=== PATIENT | male | born 1945 | race Caucasian/White ===

== ENCOUNTER → 2017-10-09 | Outpatient (CLI) | payer MEDICARE ==
[~2017-10-09] MED LIST: AMIT10TA6 PO; ATOR10TA69 PO; CEPH-578 PO; LISI-613 PO; PRIM50TA29 PO; TAMS0.4C32 PO; [UNRECOGNIZED DRUG - OTHER] PO
== END | disposition home or self-care (01) ==
LOC: RAH 13:47
PROVIDERS: ATTEND Internal Medicine
DX: E04.2 Nontoxic multinodular goiter (principal); D69.6 Thrombocytopenia, unspecified
CPT/HCPCS: 76536

== ENCOUNTER → 2018-03-01 | Outpatient (CLI) | payer MEDICARE | END | disposition home or self-care (01) | LOC: SHCH 07:50 | PROVIDERS: ATTEND Internal Medicine Cardiovascular Disease | DX: I10 Essential (primary) hypertension (principal); Z72.89 Other problems related to lifestyle | CPT/HCPCS: 93306 ==

== ENCOUNTER → 2018-03-05 | Outpatient (CLI) | payer MEDICARE ==
[~2018-03-05] VITALS: Ht 172.7 cm; Wt 81.6 kg
[~2018-03-05] MED LIST changes: +REGADENOSON 0.4 MG/5 ML PF SYG IVP SCH
== END | disposition home or self-care (01) ==
LOC: SHCH 09:20
PROVIDERS: ATTEND Internal Medicine Cardiovascular Disease
DX: I20.9 Angina pectoris, unspecified (principal)
CPT/HCPCS: 78452; 93017; 96374; A9500 ×2; J2785

== ENCOUNTER → 2018-06-13 | Outpatient (CLI) | payer MEDICARE ==
[~2018-06-13] MED LIST changes: +IOHEXOL-350 50ML VIAL IV ONE; -REGADENOSON 0.4 MG/5 ML PF SYG IVP SCH
== END | disposition home or self-care (01) ==
LOC: RAH 09:28
PROVIDERS: ATTEND Internal Medicine
DX: R07.9 Chest pain, unspecified (principal)
CPT/HCPCS: 71260; Q9967

== ENCOUNTER 2019-03-05 07:44 | Day surgery (SDC) | payer MEDICARE ==
[~2019-03-05] VITALS: Ht 177.8 cm; Wt 97.1 kg
[~2019-03-05 07:44] MED LIST changes: -IOHEXOL-350 50ML VIAL IV ONE; +SODIUM CHLORIDE 0.9% 1000ML 1,000 ML IV ONE
[2019-03-05 08:31] VITALS: BP 132/75
[2019-03-05 08:48] LABS: BASOPHILS % (AUTO) 0.6 % (0.0-5.0); EOSINOPHILS % (AUTO) 3.7 % (0.0-8.0); LYMPHOCYTES % (AUTO) 21.4 % (21.0-51.0); MEAN CORPUSCULAR HEMOGLOBIN 32.4 pg (27.0-33.0); MEAN CORPUSCULAR HGB CONC 35.1 g/dL (32.0-36.0); MEAN CORPUSCULAR VOLUME 92.1 fL (79-99); MONOCYTES % (AUTO) 9.4 % (3.0-13.0); NEUTROPHILS % (AUTO) 64.9 % (40.0-77.0); NUCLEATED RED BLOOD CELLS 0.2 % (0.0-0.19); PLATELET COUNT (AUTO) 131 K/uL (130-400); RED CELL DISTRIBUTION WIDTH 12.7 % (11.0-15.5); WHITE BLOOD COUNT (AUTO) 5.2 K/uL (4.8-10.8)
[2019-03-05] MEDS ORDERED: SACU1TAB7 PO (08:56)
[2019-03-05] MEDS ORDERED: NITR0.4T50 SL (08:56)
[2019-03-05] MEDS ORDERED: RANO10003 PO (08:56)
[2019-03-05] MEDS ORDERED: ATOR20TA65 PO (08:56)
[2019-03-05] MEDS ORDERED: TUMERIC PO (08:56)
[2019-03-05] MEDS ORDERED: ASPI-555 PO (08:56)
[2019-03-05 08:57] LABS: INR 1.08 (0.85-1.15); PROTHROMBIN TIME 11.3 SEC (9.6-11.6)
[2019-03-05] MEDS ORDERED: PROPOFOL 10 MG/ML 20ML VIAL IV ONE (09:08)
[2019-03-05 09:29] VITALS: BP 107/64
[2019-03-05 09:34] VITALS: BP 111/65
[2019-03-05 09:39] VITALS: BP 109/68
[2019-03-05 09:44] VITALS: BP 119/69
== END 2019-03-05 09:49 | disposition home or self-care (01) ==
LOC: ENDO 07:44 → DAH 07:44 → ENDO 09:49
PROVIDERS: ATTEND Internal Medicine
DX: D3A.092 Benign carcinoid tumor of the stomach (principal); K29.50 Unspecified chronic gastritis without bleeding; K21.0 Gastro-esophageal reflux disease with esophagitis; I10 Essential (primary) hypertension; G47.30 Sleep apnea, unspecified; Z79.82 Long term (current) use of aspirin; Z98.890 Other specified postprocedural states; Z79.899 Other long term (current) drug therapy; Z72.89 Other problems related to lifestyle; Z82.3 Family history of stroke
CPT/HCPCS: 36415; 43237; 43239; 85025; 85610; 88305; A4215; A4221; A4222; A4223; A4606; A4615; A4663; J2704; J7030

== ENCOUNTER → 2021-06-21 | Outpatient (CLI) | payer MEDICARE ==
[~2021-06-21] MED LIST changes: -AMIT10TA6 PO; +ASPI-556 PO; -ATOR10TA69 PO; +ATOR20TA65 PO; -CEPH-578 PO; -LISI-613 PO; +NITR0.4T50 SL; -PRIM50TA29 PO; +RANO10003 PO; +SACU1TAB7 PO; -SODIUM CHLORIDE 0.9% 1000ML 1,000 ML IV ONE; +TUMERIC PO; -[UNRECOGNIZED DRUG - OTHER] PO
== END | disposition home or self-care (01) ==
LOC: SHCH 12:53
PROVIDERS: ATTEND Internal Medicine Cardiovascular Disease
DX: I87.2 Venous insufficiency (chronic) (peripheral) (principal)
CPT/HCPCS: 93970

== ENCOUNTER → 2021-06-27 | Outpatient (CLI) | payer MEDICARE ==
[~2021-06-27] MED LIST changes: +REGADENOSON 0.4 MG/5 ML PF SYG IVP SCH
== END | disposition home or self-care (01) ==
LOC: SHCH 08:11
PROVIDERS: ATTEND Internal Medicine Cardiovascular Disease
DX: I20.9 Angina pectoris, unspecified (principal); R06.09 Other forms of dyspnea; R07.9 Chest pain, unspecified
CPT/HCPCS: 78452; 93017; 96374; A9500 ×2; J2785

== ENCOUNTER 2021-10-04 18:56 | Observation (INO) | payer MEDICARE ==
[~2021-10-04] VITALS: Ht 177.8 cm; Wt 91.4 kg
[~2021-10-04 18:56] MED LIST changes: +AMLO-258 PO; -ASPI-556 PO; +LOSA100T58 PO; -NITR0.4T50 SL; +OXYB5TAB15 PO; -RANO10003 PO; -REGADENOSON 0.4 MG/5 ML PF SYG IVP SCH; -SACU1TAB7 PO; -TUMERIC PO
[2021-10-04 19:20] LABS: APPEARANCE,URINE CLEAR (CLEAR); BILIRUBIN,URINE NEGATIVE (NEGATIVE); COLOR,URINE YELLOW (YELLOW); GLUCOSE, URINE (UA) NEGATIVE (NEGATIVE); KETONES,URINE NEGATIVE (NEGATIVE); LEUKOCYTE ESTERASE ,URINE NEGATIVE (NEGATIVE); NITRATE,URINE NEGATIVE (NEGATIVE); OCCULT BLOOD,URINE NEGATIVE (NEGATIVE); PROTEIN,URINE NEGATIVE (NEGATIVE); UROBILINOGEN,URINE 0.2 mg/dL (0.2-1.0)
[2021-10-04] MEDS ORDERED: METOPROLOL TARTRATE 1 MG/ML 5ML VIAL IV ONE (19:30)
[2021-10-04 19:48] LABS: BASOPHILS % (AUTO) 0.4 % (0.0-5.0); EOSINOPHILS % (AUTO) 2.9 % (0.0-8.0); HEMATOCRIT 34.9 % (42-54); LYMPHOCYTES % (AUTO) 13.6 % (21.0-51.0); MEAN CORPUSCULAR HEMOGLOBIN 31.2 pg (27.0-33.0); MEAN CORPUSCULAR HGB CONC 33.8 g/dL (32.0-36.0); MEAN CORPUSCULAR VOLUME 92.3 fL (79-99); MONOCYTES % (AUTO) 7.2 % (3.0-13.0); NEUTROPHILS % (AUTO) 74.7 % (40.0-77.0); PLATELET COUNT (AUTO) 235 K/uL (130-400); RED BLOOD CELL COUNT(AUTO) 3.78 MIL/uL (4.50-6.20); RED CELL DISTRIBUTION WIDTH 11.7 % (11.0-15.5); WHITE BLOOD COUNT (AUTO) 10.8 K/uL (4.8-10.8)
[2021-10-04 20:01] LABS: POTASSIUM 3.9 mmol/L (3.5-5.1)
[2021-10-04 20:03] LABS: INR 1.12 (0.85-1.15); PROTHROMBIN TIME 12.1 SEC (9.6-11.6)
[2021-10-04 20:05] LABS: PARTIAL THROMBOPLASTIN TIME 29.7 SEC (26.3-35.5)
[2021-10-04 20:06] LABS: ALBUMIN 3.2 g/dL (3.5-5.0); TOTAL PROTEIN, SERUM 6.7 g/dL (6.0-8.3)
[2021-10-04 20:08] LABS: B-TYPE NATRIURETIC PEPTIDE 176 pg/mL (0-100)
[2021-10-04] MEDS ORDERED: ACETAMINOPHEN 325 MG TAB PO PRN (20:30)
[2021-10-04] MEDS ORDERED: ONDANSETRON 4MG INJ IV PRN (20:30)
[2021-10-04] MEDS ORDERED: ASPIRIN 81MG CHEW TAB PO ONE (20:30)
[2021-10-04] MEDS ORDERED: MORPHINE 4 MG SYG IV PRN (20:30)
[2021-10-04] MEDS ORDERED: MORPHINE 2 MG SYG IV PRN (20:30)
[2021-10-04] MEDS ORDERED: 0.9% NACL 500ML IV.SOLN 500 ML IV ONE (20:30)
[2021-10-04] MEDS ORDERED: DILTIAZEM 25MG INJ IVP ONE (20:30)
[2021-10-04] MEDS ORDERED: METO25TA6 PO (20:40)
[2021-10-04] MEDS ORDERED: CLOP75TA14 PO (20:40)
[2021-10-04] MEDS ORDERED: AMLO-258 PO (20:40)
[2021-10-04] MEDS ORDERED: DOCU100C33 PO (20:40)
[2021-10-04] MEDS ORDERED: ATOR40TA71 PO (20:40)
[2021-10-04] MEDS ORDERED: FURO20TA4 PO (20:40)
[2021-10-04] MEDS ORDERED: OXYB5TAB15 PO (20:40)
[2021-10-04] MEDS ORDERED: LOSA100T58 PO (20:40)
[2021-10-04] MEDS ORDERED: ASPI-1197 PO (20:40)
[2021-10-04] MEDS ORDERED: BENZ-70 PO (20:40)
[2021-10-04] MEDS ORDERED: TAMS-1 PO (20:40)
[2021-10-04] MEDS ORDERED: NITR0.4T50 SL (20:40)
[2021-10-04] MEDS ORDERED: FENTANYL CITRATE PF 50 MCG/1 ML 2ML VIAL IVP ONE (21:00)
[2021-10-04] MEDS ORDERED: MIDAZOLAM HCL 1 MG/ML 2ML VIAL IVP ONE (21:00)
[2021-10-04 21:02] VITALS: BP_DIAS 66
[2021-10-04 21:02] LABS: PHOSPHORUS 3.9 mg/dL (2.5-4.9); THYROID STIMULATING HORMONE 0.55 uIU/mL (0.36-3.74)
[2021-10-04] MEDS ORDERED: ASPIRIN 81MG CHEW TAB ONE (21:41)
[2021-10-04] MEDS: HEPARIN 5,000 UNIT VIAL SQ SCH (21:48)
[2021-10-05 03:30] VITALS: BP 117/67
[2021-10-05 04:10] LABS: BASOPHILS % (AUTO) 0.3 % (0.0-5.0); EOSINOPHILS % (AUTO) 3.4 % (0.0-8.0); HEMATOCRIT 31.1 % (42-54); LYMPHOCYTES % (AUTO) 15.4 % (21.0-51.0); MEAN CORPUSCULAR HEMOGLOBIN 31.7 pg (27.0-33.0); MEAN CORPUSCULAR HGB CONC 34.4 g/dL (32.0-36.0); MONOCYTES % (AUTO) 8.3 % (3.0-13.0); NEUTROPHILS % (AUTO) 70.9 % (40.0-77.0); PLATELET COUNT (AUTO) 229 K/uL (130-400); RED BLOOD CELL COUNT(AUTO) 3.38 MIL/uL (4.50-6.20); RED CELL DISTRIBUTION WIDTH 11.7 % (11.0-15.5); WHITE BLOOD COUNT (AUTO) 8.8 K/uL (4.8-10.8)
[2021-10-05 04:40] LABS: POTASSIUM 3.9 mmol/L (3.5-5.1)
[2021-10-05] MEDS: HEPARIN 5,000 UNIT VIAL SQ SCH (06:05)
[2021-10-05 08:00] VITALS: BP 116/64
[2021-10-05] MEDS ORDERED: ASPIRIN 81MG CHEW TAB PO SCH (09:00)
[2021-10-05] MEDS ORDERED: FAMOTIDINE 20MG TAB PO SCH (09:00)
[2021-10-05] MEDS ORDERED: AMLO-258 PO (09:53)
[2021-10-05] MEDS ORDERED: KCL 20 MEQ ERTAB PO SCH (10:30)
== END 2021-10-05 11:14 | disposition home or self-care (01) ==
LOC: EDH 18:56 → INTOOBSV 20:18 → EDHIP 20:18 → 2DH 10-05 02:23
PROVIDERS: ADMIT Hospitalist; ATTEND Hospitalist
DX: I48.92 Unspecified atrial flutter (principal); Z20.822 Contact with and (suspected) exposure to COVID-19; I10 Essential (primary) hypertension; I25.10 Atherosclerotic heart disease of native coronary artery without angina pectoris; I48.91 Unspecified atrial fibrillation; N40.0 Benign prostatic hyperplasia without lower urinary tract symptoms; R42 Dizziness and giddiness; E78.5 Hyperlipidemia, unspecified; Z95.1 Presence of aortocoronary bypass graft; Z96.651 Presence of right artificial knee joint; Z79.899 Other long term (current) drug therapy; Z98.890 Other specified postprocedural states; Z79.82 Long term (current) use of aspirin
CPT/HCPCS: 92960; 96374; 96372 ×2; 96361; 84443; 83735; 84100; 84484; 80053; 83880; 85025 ×2; 85610; 85730; 81003; 36415 ×2; 87635; 71045; 99291; 93005 ×3; 80048; J7040; J3010; J3490; J2250; J1644 ×2; G0378; 96375

== ENCOUNTER → 2021-11-24 | Outpatient (CLI) | payer MEDICARE ==
[~2021-11-24] MED LIST changes: +ASPI-1197 PO; -ATOR20TA65 PO; +ATOR40TA71 PO; +BENZ-70 PO; +CLOP75TA14 PO; +DOCU100C33 PO; +FURO20TA4 PO; +METO25TA6 PO; +NITR0.4T50 SL; +TAMS-1 PO; -TAMS0.4C32 PO
== END | disposition home or self-care (01) ==
LOC: RAH 09:21
PROVIDERS: ATTEND Internal Medicine
DX: M71.22 Synovial cyst of popliteal space [Baker], left knee (principal); D69.9 Hemorrhagic condition, unspecified; F17.201 Nicotine dependence, unspecified, in remission; D69.6 Thrombocytopenia, unspecified
CPT/HCPCS: 76775; 93971

== ENCOUNTER 2022-04-11 13:54 | Emergency (ER) | payer MEDICARE ==
[~2022-04-11] VITALS: Ht 177.8 cm; Wt 97.5 kg
[~2022-04-11 13:54] MED LIST changes: +CLOP-31 PO; -CLOP75TA14 PO
[2022-04-11 14:12] VITALS: BP 145/71
[2022-04-11 14:40] LABS: BASOPHILS % (AUTO) 0.3 % (0.0-5.0); EOSINOPHILS % (AUTO) 1.1 % (0.0-8.0); HEMATOCRIT 42.4 % (42-54); LYMPHOCYTES % (AUTO) 12.2 % (21.0-51.0); MEAN CORPUSCULAR HEMOGLOBIN 31.6 pg (27.0-33.0); MEAN CORPUSCULAR HGB CONC 35.6 g/dL (32.0-36.0); MEAN CORPUSCULAR VOLUME 88.7 fL (79-99); NEUTROPHILS % (AUTO) 79.9 % (40.0-77.0); PLATELET COUNT (AUTO) 137 K/uL (130-400); RED BLOOD CELL COUNT(AUTO) 4.78 MIL/uL (4.50-6.20); RED CELL DISTRIBUTION WIDTH 12.3 % (11.0-15.5); WHITE BLOOD COUNT (AUTO) 8.8 K/uL (4.8-10.8)
[2022-04-11 14:52] LABS: POTASSIUM 3.6 mmol/L (3.5-5.1)
[2022-04-11 14:57] LABS: ALBUMIN 3.8 g/dL (3.5-5.0)
[2022-04-11] MEDS ORDERED: BACI30OI6 TP (15:20)
[2022-04-11] MEDS ORDERED: AMOX1TAB16 PO (15:20)
[2022-04-11] MEDS ORDERED: ACETAMINOPHEN 500 MG TABLET PO ONE (15:30)
[2022-04-11] MEDS ORDERED: AMOX/CLAV 875/125MG TAB PO ONE (15:30)
== END 2022-04-11 15:41 | disposition home or self-care (01) ==
LOC: EDH 13:54
DX: S61.452A Open bite of left hand, initial encounter (principal); I10 Essential (primary) hypertension; E78.5 Hyperlipidemia, unspecified; I25.10 Atherosclerotic heart disease of native coronary artery without angina pectoris; Z79.82 Long term (current) use of aspirin; W54.0XXA Bitten by dog, initial encounter; Y93.89 Activity, other specified; Y92.89 Other specified places as the place of occurrence of the external cause; Y99.8 Other external cause status
CPT/HCPCS: 36415; 73130; 80053; 85025

== ENCOUNTER → 2023-01-19 | Outpatient (CLI) | payer MEDICARE ==
[~2023-01-19] MED LIST changes: +AMOX1TAB16 PO; +BACI30OI6 TP; +BENZ-226 PO; -BENZ-70 PO; -LOSA100T58 PO; +LOSA100T59 PO; -OXYB5TAB15 PO; +OXYB5TAB20 PO
== END | disposition home or self-care (01) ==
LOC: SHCH 07:47
PROVIDERS: ATTEND Internal Medicine Cardiovascular Disease
DX: I73.89 Other specified peripheral vascular diseases (principal); I87.1 Compression of vein; I87.2 Venous insufficiency (chronic) (peripheral)
CPT/HCPCS: 93925; 93970

== ENCOUNTER → 2023-04-30 | Outpatient (CLI) | payer MEDICARE ==
[2023-04-30 12:23] LABS: BASOPHILS # (AUTO) 0.02 K/uL (0.00-0.20); BASOPHILS % (AUTO) 0.4 % (0.0-5.0); EOSINOPHILS # (AUTO) 0.18 K/uL (0.00-0.70); EOSINOPHILS % (AUTO) 3.3 % (0.0-8.0); HEMATOCRIT 48.6 % (42-54); IMMATURE GRANULOCYTE ABSOLUTE 0.02 K/uL (0-1); LYMPHOCYTES # (AUTO) 1.3 K/uL (1.0-4.8); LYMPHOCYTES % (AUTO) 23.7 % (21.0-51.0); MEAN CORPUSCULAR HGB CONC 35.2 g/dL (32.0-36.0); MONOCYTES # (AUTO) 0.5 K/uL (0.1-1.0); MONOCYTES % (AUTO) 8.9 % (3.0-13.0); NEUTROPHILS # (AUTO) 3.4 K/uL (1.8-7.7); NEUTROPHILS % (AUTO) 63.3 % (40.0-77.0); PLATELET COUNT (AUTO) 142 K/uL (130-400); RED BLOOD CELL COUNT(AUTO) 5.34 MIL/uL (4.50-6.20); RED CELL DISTRIBUTION WIDTH 12.3 % (11.0-15.5); WHITE BLOOD COUNT (AUTO) 5.4 K/uL (4.8-10.8)
[2023-04-30 12:32] LABS: CREATININE 1.1 mg/dL (0.5-1.5); POTASSIUM 4.2 mmol/L (3.5-5.1)
[2023-04-30 12:33] LABS: INR 1.03 (0.85-1.15); PROTHROMBIN TIME 11.9 SEC (9.6-11.6)
[2023-04-30 12:34] LABS: PARTIAL THROMBOPLASTIN TIME 30.8 SEC (26.3-35.5)
== END | disposition home or self-care (01) ==
LOC: LAB 09:39
PROVIDERS: ATTEND Internal Medicine Cardiovascular Disease
DX: I11.9 Hypertensive heart disease without heart failure (principal); I87.1 Compression of vein; Z79.01 Long term (current) use of anticoagulants
CPT/HCPCS: 36415; 80048; 85025; 85610; 85730

== ENCOUNTER → 2024-07-14 | Outpatient (CLI) | payer MEDICARE ==
--- NOTE | 2024-07-14 12:54 | HMCIMG ---
KNEE 3VWS LT HISTORY: Left knee pain COMPARISON: None TECHNIQUE: 3 images of left knee were obtained. FINDINGS: There is no acute displaced fracture or dislocation. There is soft tissue swelling. 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 Surgical tori are seen at the medial aspect of the left knee. Degenerative changes are seen. IMPRESSION: 1. Findings as described above.
== END | disposition home or self-care (01) ==
LOC: RAH 12:07
PROVIDERS: ATTEND Internal Medicine
DX: M17.12 Unilateral primary osteoarthritis, left knee (principal); M25.462 Effusion, left knee; M25.562 Pain in left knee; Z96.659 Presence of unspecified artificial knee joint
CPT/HCPCS: 73562